=== PATIENT | male | born 1965 | race Caucasian/White ===

== ENCOUNTER 2017-07-30 14:06 | Day surgery (SDC) | payer OTHER ==
[~2017-07-30] VITALS: Ht 152.4 cm; Wt 87.3 kg
[~2017-07-30 14:06] MED LIST: COLCRYS0.6 MG PO; CYCL10 PO; FEXPSEER PO; IBUP800 PO; LOSA50 PO; OXYACE5T PO; Protonix40 MG PO
== END 2017-07-30 15:38 | disposition home or self-care (01) ==
LOC: ORSCSDS 14:06
PROVIDERS: Surgery
PROC: 0DBH8ZX Excision of Cecum, Via Natural or Artificial Opening Endoscopic, Diagnostic (ICD-10-PCS; principal; 2017-07-30 15:15)
DX: Z12.11 Encounter for screening for malignant neoplasm of colon (principal); D12.0 Benign neoplasm of cecum; D12.8 Benign neoplasm of rectum; I10 Essential (primary) hypertension; E78.5 Hyperlipidemia, unspecified; Z79.899 Other long term (current) drug therapy
CPT/HCPCS: 88305; J7120

== ENCOUNTER 2023-04-12 09:36 | Inpatient (IN) | payer OTHER ==
[~2023-04-12] VITALS: Ht 165.1 cm; Wt 102.0 kg
[~2023-04-12 09:36] MED LIST changes: +ATEN50 PO; +CALC.25 PO; +CALCIUM CARBON500 M1 PO; +PROP50 PO; +SSKI1 GM/1 ML PO
[2023-04-12] MEDS ORDERED: EUTHYROX150 MC1 PO (10:03)
[2023-04-12 10:12] LABS: BASOPHILS ABSOLUTE AUTO 0.07 K/mm3 (0.00-0.23); BASOPHILS PERCENT AUTO 0 % (0-2); EOSINOPHILS ABSOLUTE AUTO 0.11 K/mm3 (0.00-0.68); EOSINOPHILS PERCENT AUTO 1 % (0-6); Hematocrit 37.9 % (37.0-53.0); Hemoglobin 12.4 g/dL (13.5-17.5); IMMATURE GRAN PERCENT AUTO 1 % (0-1); LYMPHOCYTES ABSOLUTE AUTO 1.88 K/mm3 (0.84-5.20); LYMPHOCYTES PERCENT AUTO 11 % (21-46); MONOCYTES ABSOLUTE AUTO 1.52 K/mm3 (0.16-1.47); MONOCYTES PERCENT AUTO 9 % (4-13); Mean Corpuscular HGB 27.6 pg (26.0-34.0); Mean Corpuscular HGB Conc 32.7 g/dL (31.5-36.5); Mean Corpuscular Volume 84 fL (80-100); Mean Platelet Volume 10.1 fL (9.1-12.4); NEUTROPHILS PERCENT AUTO 78 % (41-73); Platelet Count 502 K/mm3 (150-400); RDW Coefficient Variation 14.6 % (11.7-14.2); RDW Standard Deviation 44.7 fL (35.1-46.3); White Blood Cell Count 16.88 K/mm3 (4.00-11.30)
[2023-04-12 10:30] LABS: Free Thyroxine 1.35 ng/dL (0.70-1.60)
[2023-04-12 10:59] LABS: Thyroid Stimulating Hormone 7.46 uIU/mL (0.360-4.800)
[2023-04-12 11:00] LABS: Albumin, Blood 2.7 g/dL (3.4-5.0); Albumin/Globulin Ratio 0.6 (0.8-1.8); Bilirubin, Total 0.6 mg/dL (0.1-1.0); Bun/Creatinine Ratio 8.5 (12.0-20.0); Calcium, Blood 8.8 mg/dL (8.5-10.1); Creatinine, Blood 1.18 mg/dL (0.60-1.20); Globulin, Blood 4.7 g/dL (2.2-4.0); Potassium, Blood 3.6 mmol/L (3.5-5.5); Total Protein, Blood 7.4 g/dL (6.4-8.2)
[2023-04-12 14:16] LABS: Adenovirus Not Detected (NOT DETECT); Bordetella pertussis Not Detected (NOT DETECT); Chlamydophila pneumoniae Not Detected (NOT DETECT); Coronavirus 229E Not Detected (NOT DETECT); Coronavirus HKU1 Not Detected (NOT DETECT); Coronavirus NL63 Not Detected (NOT DETECT); Coronavirus OC43 Not Detected (NOT DETECT); Human Metapneumovirus Not Detected (NOT DETECT); Human Rhinovirus/Enterovirus Not Detected (NOT DETECT); Influenza A/2009-H1 Not Detected (NOT DETECT); Influenza A/H1 Not Detected (NOT DETECT); Influenza A/H3 Not Detected (NOT DETECT); Influenza B Not Detected (NOT DETECT); Mycoplasma pneumoniae Not Detected (NOT DETECT); Parainfluenza Virus 1 Not Detected (NOT DETECT); Parainfluenza Virus 2 Not Detected (NOT DETECT); Parainfluenza Virus 3 Not Detected (NOT DETECT); Parainfluenza Virus 4 Not Detected (NOT DETECT); Respiratory Syncytial Virus Not Detected (NOT DETECT); SARS-Cov-2 (COVID-19), BioFire Not Detected (NOT DETECT)
[2023-04-12 14:40] LABS: Source, Urine Clean Catch
[2023-04-12 14:42] LABS: Appearance, Urine Clear (Clear); Bilirubin, Urine Neg (Neg); Blood, Urine 1+ (Neg); Color, Urine Yellow (P-Yellow); Glucose Qualitative, Urine Neg (Neg); Ketones, Urine 1+ (Neg); Leukocyte Esterase, Urine Neg (Neg); Nitrite, Urine Neg (Neg); Protein, Urine Neg (Neg); Urobilinogen, Urine NORM (Normal)
[2023-04-12 14:51] LABS: Bacteria Rare /hpf; Squamous Epithelial Cells Rare /hpf (Few); White Blood Cells, Urine 0-2 /hpf (0-5)
[2023-04-12 16:50] VITALS: BP 163/89
--- NOTE | 2023-04-12 18:04 | NUR ---
ADMISSION AND SHIFT SUMMARY PATIENT ADMITTED TO MEDICAL FLOOR WITH A PLEURAL AND PERICARDIAL EFFUSION. PATIENT ALERT AND ABLE TO AMBULATE AROUND THE ROOM. PATIENT DENIES ANY PAIN. DENIES SOB. SKIN INTACT. PATIENT CURRENTLY IN -ST 90-110'S. PATIENT STATES THAT HE HAS HAD A THYROIDECTOMY BUT UNSURE IF HE STILL HAS HIS PARATHYROID. 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 PATIENT ARRIVED TO MEDICAL FLOOR WITH R HAND COLD TO TOUCH TO ABOVE THE WRIST. PATIENT STATES THAT THIS IS NEW. ED DEPARTMENT NOTIFYING HOSPITALIST OF NEW FINDINGS. PATIENT STATES THAT IT FEELS PUFFY AND ACHES. PATIENT ABLE TO MOVE HAND AND FINGERS TO COMMAND. EDUCATED PATIENT ON CHEST PAIN AND SHORTNESS OF BREATH, WHEN TO NOTIFY STAFF OF SYMPTOMS. ENCOURAGED PATIENT TO ALLOW STAFF TO ASSIST WITH AMBULATION BECAUSE OF RAPID HEART RATE AT THIS TIME. PATIENT ALSO STATES THAT HE HAS A TICKLE IN HIS THROAT WHEN HIS HEART RATE GETS FAST CAUSING HIM TO COUGH. 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
[2023-04-12 20:16] VITALS: BP 148/82
[2023-04-13 03:00] VITALS: BP 153/79
--- NOTE | 2023-04-13 04:03 | NUR ---
SHIFT SUMMARY NO ACUTE CHANGES THIS SHIFT. VSS. AXO. IN SR/ST DEPENDING ON ACTIVITY LEVEL. ON RA, DRY COUGH CONTINUES, NO CHANGES TO AUSCULTATION OR PT REPORT. CONTINENT, UP TO BATHROOM MULTIPLE TIMES THIS SHIFT. FLUIDS INFUSING PER EMAR, PT INSTRUCTED TO RELAY TO NURSE IF SOB/CHEST HEAVINESS/INCREASED COUGHING DEVELOPS DUE TO PERICARDIAL EFFUSION AND PLEURAL EFFUSION. OTHERWISE, PT RESTING OFF AND ON W/O MAJOR COMPLAINT.
[2023-04-13 05:44] LABS: BASOPHILS ABSOLUTE AUTO 0.06 K/mm3 (0.00-0.23); BASOPHILS PERCENT AUTO 1 % (0-2); EOSINOPHILS ABSOLUTE AUTO 0.29 K/mm3 (0.00-0.68); EOSINOPHILS PERCENT AUTO 3 % (0-6); Hematocrit 36.6 % (37.0-53.0); Hemoglobin 11.3 g/dL (13.5-17.5); IMMATURE GRAN ABSOLUTE AUTO 0.08 K/mm3 (0.00-0.10); IMMATURE GRAN PERCENT AUTO 1 % (0-1); LYMPHOCYTES ABSOLUTE AUTO 2.01 K/mm3 (0.84-5.20); LYMPHOCYTES PERCENT AUTO 20 % (21-46); MONOCYTES ABSOLUTE AUTO 1.07 K/mm3 (0.16-1.47); MONOCYTES PERCENT AUTO 11 % (4-13); Mean Corpuscular HGB 26.8 pg (26.0-34.0); Mean Corpuscular HGB Conc 30.9 g/dL (31.5-36.5); Mean Corpuscular Volume 87 fL (80-100); Mean Platelet Volume 10.8 fL (9.1-12.4); NEUTROPHILS ABSOLUTE AUTO 6.44 K/mm3 (1.96-9.15); NEUTROPHILS PERCENT AUTO 65 % (41-73); Platelet Count 396 K/mm3 (150-400); RDW Coefficient Variation 14.7 % (11.7-14.2); RDW Standard Deviation 47.1 fL (35.1-46.3); Red Blood Cell Count 4.21 M/mm3 (4.30-5.90); White Blood Cell Count 9.95 K/mm3 (4.00-11.30)
[2023-04-13 06:10] LABS: Albumin, Blood 2.4 g/dL (3.4-5.0); Albumin/Globulin Ratio 0.5 (0.8-1.8); Bilirubin, Total 0.4 mg/dL (0.1-1.0); Bun/Creatinine Ratio 9.3 (12.0-20.0); Calcium, Blood 8.2 mg/dL (8.5-10.1); Creatinine, Blood 0.97 mg/dL (0.60-1.20); Globulin, Blood 4.7 g/dL (2.2-4.0); Potassium, Blood 3.6 mmol/L (3.5-5.5); Total Protein, Blood 7.1 g/dL (6.4-8.2)
[2023-04-13 07:12] VITALS: BP 169/93
[2023-04-13 16:27] VITALS: BP 185/85
--- NOTE | 2023-04-13 18:16 | NUR ---
SHIFT SUMMARY PATIENT CONTINUES TO HAVE COUGH WHEN HR INCREASES. DENIES ANY SOB. PATIENT STARTED ON TOPROL THIS AFTERNOON. CONTINUE ANTIBIOTICS. PATIENT INDEPENDENT IN THE ROOM. PATIENT SHOWERED INDEPENDENTLY. PATIENT HOPEFULL TO GO HOME IN AM.
[2023-04-13 18:20] VITALS: BP 165/89
[2023-04-13 19:27] VITALS: BP 168/88
[2023-04-14 04:45] VITALS: BP 163/99
--- NOTE | 2023-04-14 05:19 | NUR ---
SHIFT SUMMARY 58 YR M ADMITTED ON 04/12/23 FOR TACHYCARDIA. FULL CODE. NO ACUTE CHANGES THIS SHIFT. PT'S PULSE HAS BEEN WITHIN NORMAL RANGE THIS SHIFT BUT BP REMAINS HIGH. PT HAS NO C/O PAIN OR DISCOMFORT THIS SHIFT. WILL CONTINUE TO MONITOR.
[2023-04-14 07:24] VITALS: BP 172/103
[2023-04-14 08:55] VITALS: BP 177/105
[2023-04-14 12:34] VITALS: BP 177/104
[2023-04-14] MEDS ORDERED: VISBIOME 112.51 EACH PO (14:49)
[2023-04-14] MEDS ORDERED: METO50ER PO (14:49)
[2023-04-14] MEDS ORDERED: LEVAQUIN750 MG PO (14:50)
--- NOTE | 2023-04-14 15:39 | NUR ---
PT DISCHARGED HOME. DC INSTRUCTIONS AND EDUCATION MATERIAL EXPLAINED TO PT AND . NO NEW QUESTIONS OR CONCERNS. PERSCRIPTIONS FAXED TO [facility] PER PT REQUEST. TELE AND IV DC'd. PT ABLE TO DRESS INDEPENDENTLY. ALL BELONGINGS GATERED AND SENT HOME WITH PT. PT DECLINED TO BE TAKEN OUT BY WHEELCHAIR. PT ABLE TO LEAVE WITH INDEPENDENTLY.
== END 2023-04-14 15:15 | disposition home or self-care (01) | DRG 871 ==
LOC: ER 09:36 → MEDS 13:44
PROVIDERS: Emergency Medicine; ADMIT Internal Medicine
DX: A41.9 Sepsis, unspecified organism (principal); J18.9 Pneumonia, unspecified organism; I31.39 Other pericardial effusion (noninflammatory); J90 Pleural effusion, not elsewhere classified; R73.9 Hyperglycemia, unspecified; I10 Essential (primary) hypertension; R79.1 Abnormal coagulation profile; E89.0 Postprocedural hypothyroidism; Z88.0 Allergy status to penicillin; Z86.19 Personal history of other infectious and parasitic diseases; Z79.890 Hormone replacement therapy; Z11.52 Encounter for screening for COVID-19
CPT/HCPCS: 0202U; 36415; 71045; 71260; 80053; 81001; 83605; 84145; 84439; 84443; 84484; 85025; 85379; 85651; 86141; 87040; 93005; 93010; 93306; 96365-59; 96375-59; 99285-25; A9270; J0456; J0696; J1650; J7030; J7050; Q9967